=== PATIENT | female | born 1985 | race Hispanic/Latino ===

== ENCOUNTER 2017-03-28 14:14 | Outpatient (CLI) | payer BC, OTHER ==
--- NOTE | 2017-03-28 17:49 | ULT ---
OB ULTRASOUND: Date: 03/28/17 HISTORY: Size and dates. FINDINGS: A single live intrauterine gestation is seen with measurements corresponding to an estimated gestati onal age of 19 weeks/4 days and IDALIA at 08/18/17. The estimated weight measures 324 gm, or 11 oz. measurements are as follows: BPD: 4.47 cm, 19 weeks/4 days HC: 17.11 cm, 19 weeks/5 days AC: 14.71 cm, 20 weeks/0 days FL: 3.22 cm, 20 weeks/0 days heart rate measures 146 beats/minute. MICHELLE measures 12.0 cm. Placenta is anteriorly located wit hout evidence of placenta previa. A three vessel cord, cord insertion, kidneys, bladder, stomach, four chamber heart, lateral ve ntricles, cerebellum, spine, lip/nose, and upper/lower extremities are visualized. No definite feta l anomalies are seen. IMPRESSION: Single live intrauterine of 19 weeks/4 days estimated gestational age and IDALIA at 08/18/17. POS: [email or web address]
== END 2017-03-28 14:15 | disposition home or self-care (01) ==
LOC: NAV ULT 14:14
PROVIDERS: ATTEND Family Medicine
DX: O09.892 Supervision of other high risk pregnancies, second trimester (principal); Z3A.19 19 weeks gestation of pregnancy
CPT/HCPCS: 76805